=== PATIENT | female | born 1955 | race Caucasian/White ===

== ENCOUNTER 2016-11-16 17:12 | Observation (INO) | payer OTHER ==
[~2016-11-16] VITALS: Ht 152.4 cm; Wt 139.0 kg
[~2016-11-16 17:12] MED LIST: ARTHROTEC 751 TABLET PO; ASPIRIN81 M1 PO; DIOVAN160 MG PO; ERGOCALCIF50000 UNIT PO; FLEXERIL10 MG PO; PERCOCET 5/31 TABLET PO
[2016-11-16 19:08] LABS: EOSINOPHIL COUNT 0.2 K/uL (0-0.3); HEMATOCRIT 40.6 % (36.0-46.0); IMMATURE GRANULOCYTE (%) 0.5 % (0.0-0.7); INSTRUMENT ABS NEUTROPHIL CT 3.4 K/uL; LYMPHOCYTE COUNT 1.9 K/uL (1.0-2.8); MCH 28.3 PG (29.0-34.0); MCV 85.8 FL (83-99); MEAN PLAT.VOLUME 10.6 uM^3 (9.5-12.4); MONOCYTE (%) 7.4 % (3-12); MONOCYTE COUNT 0.5 K/uL (0-0.8); NEUTROPHIL (%) 56.8 % (45-76); NEUTROPHIL COUNT 3.4 K/uL (1.8-6.4); PLATELET COUNT 178 K/uL (156-360); RBC DIS.WIDTH-CV 13.2 % (11.8-14.6); RED BLOOD COUNT 4.73 M/uL (3.80-5.20); WHITE BLOOD COUNT 6.1 K/uL (4.1-10.2)
[2016-11-16 19:19] LABS: CHLORIDE 102 mEq/L (99-109); POTASSIUM 3.9 mEq/L (3.7-5.4); SODIUM 139 mEq/L (136-147)
[2016-11-16 19:21] LABS: GLUCOSE 166 mg/dL (70-99)
[2016-11-16 19:23] LABS: ANION GAP 8 MEQ/L (2-14); TOTAL BILIRUBIN 0.4 mg/dL (0.0-1.0)
[2016-11-16 19:25] LABS: ALKALINE PHOSPHATASE 86 IU/L (3-129); GFR ESTIMATE (CALCULATED) > 59 mL/min/
[2016-11-16 19:26] LABS: UREA NITROGEN (BUN) 16 mg/dL (9-23)
[2016-11-16 19:30] LABS: TROP-I INTERPRETATION NEGATIVE; TROPONIN-I < 0.01 ng/mL (0.0-0.30)
[2016-11-16 20:38] LABS: ADD MIUA? YES; BILIRUBIN NEGATIVE; BLOOD NEGATIVE; COLOR YELLOW ((YELLOW)); GLUCOSE (STRIP) NEGATIVE; KETONES NEGATIVE; LEUKOCYTES NEGATIVE; NITRITE NEGATIVE; PROTEIN (STRIP) NEGATIVE; SPECIFIC GRAVITY 1.015 (1.000-1.030); UROBILINOGEN 0.2 MG/DL (0.2-1.0)
[2016-11-16 20:43] LABS: BACTERIA RARE /HPF; EPITHELIAL CELLS RARE /HPF; MUCUS NONE SEEN /LPF; RED BLOOD CELLS NONE SEEN /HPF (0-5); UCUL ADDED? NO; WHITE BLOOD CELLS 0-5 /HPF (0-5)
[2016-11-16 21:35] LABS: D-DIMER ELISA 0.61 mg/L FEU (< 0.57)
[2016-11-16] MEDS ORDERED: FLEXERIL5 MG PO (23:28)
[2016-11-16] MEDS ORDERED: VOLTAREN75 MG PO (23:29)
[2016-11-16] MEDS ORDERED: LITE COAT ASPI325 M1 PO (23:30)
[2016-11-16] MEDS ORDERED: HYDROCHLOROTHIA25 MG PO (23:31)
[2016-11-16] MEDS ORDERED: PROPRANOLOL HCL10 MG PO (23:31)
[2016-11-16] MEDS ORDERED: MISOPROSTOL200 MCG PO (23:31)
[2016-11-16] MEDS ORDERED: HUMALOG MI100 UNIT/1 SC (23:31)
[2016-11-16] MEDS ORDERED: NITROSTAT0.4 MG SL (23:32)
[2016-11-17 01:47] VITALS: BP 158/84
[2016-11-17 01:50] LABS: POINT-OF-CARE METER ID UU14162513
[2016-11-17 04:51] VITALS: BP 152/76
[2016-11-17 08:21] LABS: POINT-OF-CARE METER ID UU14162513
[2016-11-17] MEDS ORDERED: LASIX20 MG PO (11:38)
[2016-11-17 11:42] VITALS: BP 141/67
[2016-11-17 12:27] LABS: POINT-OF-CARE METER ID UU14162513
== END 2016-11-17 13:05 | disposition home or self-care (01) ==
LOC: EME 17:12 → EDOF 11-17 00:12 → 5WEST 11-17 00:12
PROVIDERS: Emergency Medicine; Hospitalist
DX: E87.70 Fluid overload, unspecified (principal); I11.0 Hypertensive heart disease with heart failure; E11.9 Type 2 diabetes mellitus without complications; E66.01 Morbid (severe) obesity due to excess calories; E78.00 Pure hypercholesterolemia, unspecified; I50.9 Heart failure, unspecified; I47.1 Supraventricular tachycardia; M79.89 Other specified soft tissue disorders; R60.0 Localized edema; Z68.43 Body mass index [BMI] 50.0-59.9, adult; R07.89 Other chest pain; Z82.49 Family history of ischemic heart disease and other diseases of the circulatory system
CPT/HCPCS: 71020; 78582; 80053; 81003; 82948; 83880; 84484; 85025; 85379; 93005; 93970; 99281; 99285; A9540; A9567; G0378; J1815; J1940

== ENCOUNTER 2016-11-20 18:55 | Observation (INO) | payer OTHER ==
[~2016-11-20] VITALS: Ht 154.9 cm; Wt 135.3 kg
[~2016-11-20 18:55] MED LIST changes: +FLEXERIL5 MG PO; +HUMALOG MI100 UNIT/1 SC; +HYDROCHLOROTHIA25 MG PO; +LASIX20 MG PO; +LITE COAT ASPI325 M1 PO; +MISOPROSTOL200 MCG PO; +NITROSTAT0.4 MG SL; +PROPRANOLOL HCL10 MG PO; +VOLTAREN75 MG PO
[2016-11-20 19:47] LABS: HEMATOCRIT 39.4 % (36.0-46.0); MCH 28.6 PG (29.0-34.0); MCV 86.6 FL (83-99); MEAN PLAT.VOLUME 11.1 uM^3 (9.5-12.4); PLATELET COUNT 197 K/uL (156-360); RBC DIS.WIDTH-CV 13.1 % (11.8-14.6); RED BLOOD COUNT 4.55 M/uL (3.80-5.20)
[2016-11-20 19:58] LABS: CHLORIDE 100 mEq/L (99-109); SODIUM 136 mEq/L (136-147)
[2016-11-20 19:59] LABS: GLUCOSE 245 mg/dL (70-99)
[2016-11-20 20:01] LABS: ANION GAP 11 MEQ/L (2-14)
[2016-11-20 20:03] LABS: GFR ESTIMATE (CALCULATED) > 59 mL/min/
[2016-11-20 20:04] LABS: UREA NITROGEN (BUN) 13 mg/dL (9-23)
[2016-11-20 20:05] LABS: POTASSIUM 4.7 mEq/L (3.7-5.4)
[2016-11-20 20:10] LABS: TROP-I INTERPRETATION NEGATIVE; TROPONIN-I < 0.01 ng/mL (0.0-0.30)
[2016-11-20] MEDS ORDERED: PROPRANOLOL HCL20 MG PO ×2 (22:08→22:12)
[2016-11-20] MEDS ORDERED: FUROSEMIDE20 MG PO (22:13)
[2016-11-20] MEDS ORDERED: HUMALOG100 UNIT/1 SC (22:15)
[2016-11-20] MEDS ORDERED: VENTOLIN HFA18 GM IH (22:16)
[2016-11-20] MEDS ORDERED: PREDNISONE10 MG PO (22:16)
[2016-11-20] MEDS ORDERED: LEVAQUIN750 MG PO (22:18)
[2016-11-20] MEDS ORDERED: PRILOSEC OTC20 MG PO (22:22)
[2016-11-20] MEDS ORDERED: PULMICORT FLE180 MCG IH (22:23)
[2016-11-21 00:57] VITALS: BP 132/65
[2016-11-21 00:58] LABS: POINT-OF-CARE METER ID UU14174225
[2016-11-21 02:49] LABS: TROP-I INTERPRETATION NEGATIVE; TROPONIN-I < 0.01 ng/mL (0.0-0.30)
[2016-11-21 03:58] VITALS: BP 154/73
[2016-11-21 08:04] VITALS: BP 155/72
[2016-11-21 10:32] LABS: ALKALINE PHOSPHATASE 74 IU/L (3-129); ANION GAP 10 MEQ/L (2-14); CHLORIDE 97 MEQ/L (99-109); GFR ESTIMATE (CALCULATED) > 59 mL/min/; GLUCOSE 344 mg/dL (70-99); POTASSIUM 4.3 MEQ/L (3.7-5.4); SAMPLE HEMOLYSIS CHECK 0; SAMPLE ICTERIC CHECK 0; SAMPLE LIPEMIA CHECK 0; SODIUM 135 MEQ/L (136-147); TOTAL BILIRUBIN 0.5 MG/DL (0.0-1.0); UREA NITROGEN (BUN) 15 mg/dL (9-23)
[2016-11-21 10:40] LABS: TROP-I INTERPRETATION NEGATIVE; TROPONIN-I < 0.01 ng/mL (0.0-0.30)
[2016-11-21 10:41] LABS: HEMATOCRIT 38.2 % (36.0-46.0); MCHC 32.7 G/DL (30.0-36.0); MCV 85.7 FL (83-99); MEAN PLAT.VOLUME 11.7 uM^3 (9.5-12.4); PLATELET COUNT 179 K/uL (156-360); RBC DIS.WIDTH-CV 13.2 % (11.8-14.6); RBC DIS.WIDTH-SD 40.8 % (39-53); RED BLOOD COUNT 4.46 M/uL (3.80-5.20); WHITE BLOOD COUNT 5.7 K/uL (4.1-10.2)
[2016-11-21 10:49] LABS: BASE EXCESS 4.1 mEq/L (-3 to +3); BICARBONATE 28.5 mEq/L (22-26); CARBOXY HGB 2.1 % (0-5); COMMENTS - BLOOD GASES A+C+; FI02 0.21 %; METHEMOGLOBIN 1.3 % (0-1.5); PCO2 41 mm Hg (35-45); PO2 73 mm Hg (80-100); SITE RR; pH 7.45 (7.35-7.45)
[2016-11-21 10:50] LABS: TOTAL RESP RATE 18 resp/min
[2016-11-21 12:01] VITALS: BP 156/70
[2016-11-21 15:47] VITALS: BP 172/71
[2016-11-21 17:19] LABS: POINT-OF-CARE METER ID UU14174225
[2016-11-21 19:42] VITALS: BP 143/64
[2016-11-21 21:41] LABS: POINT-OF-CARE METER ID UU14174225
[2016-11-22 00:07] VITALS: BP 121/74
[2016-11-22 03:20] VITALS: BP 130/60
[2016-11-22 07:31] LABS: POINT-OF-CARE METER ID UU14174225
[2016-11-22 07:50] VITALS: BP 146/77
[2016-11-22] MEDS ORDERED: LEVOFLOXACIN750 MG PO (11:00)
[2016-11-22] MEDS ORDERED: ALBUTEROL2.5 MG/0.5 AEROSOL (11:01)
[2016-11-22] MEDS ORDERED: NEBULIZER MC (11:02)
[2016-11-22] MEDS ORDERED: MEDROL DOSEPAK4 MG PO (11:04)
[2016-11-22] MEDS ORDERED: LASIX40 MG PO (11:11)
[2016-11-22 11:46] LABS: POINT-OF-CARE METER ID UU14174225
[2016-11-22 11:54] VITALS: BP 137/71
[2016-11-22 14:54] VITALS: BP 135/78
== END 2016-11-22 15:23 | disposition home or self-care (01) ==
LOC: EME 18:55 → EDOF 23:05 → 5SOUTH 11-21 00:30
PROVIDERS: Internal Medicine
DX: J45.901 Unspecified asthma with (acute) exacerbation (principal); J20.9 Acute bronchitis, unspecified; E66.01 Morbid (severe) obesity due to excess calories; Z68.43 Body mass index [BMI] 50.0-59.9, adult; G47.33 Obstructive sleep apnea (adult) (pediatric); F41.9 Anxiety disorder, unspecified; I10 Essential (primary) hypertension; E11.65 Type 2 diabetes mellitus with hyperglycemia; I35.0 Nonrheumatic aortic (valve) stenosis; K21.9 Gastro-esophageal reflux disease without esophagitis; Z91.19 Patient's noncompliance with other medical treatment and regimen; R60.0 Localized edema
CPT/HCPCS: 36600; 71010; 80048; 80053; 82803; 82948; 84484; 85027; 87070; 87205; 93005; 94640; 94640 76; 99202; 99281; 99285; G0378; J1644; J1815; J1940; J2930; J7512

== ENCOUNTER 2016-11-24 12:24 | Emergency (ER) | payer OTHER ==
[~2016-11-24] VITALS: Ht 152.4 cm; Wt 135.9 kg
[~2016-11-24 12:24] MED LIST changes: +ALBUTEROL2.5 MG/0.5 AEROSOL; +FUROSEMIDE20 MG PO; +HUMALOG100 UNIT/1 SC; +LASIX40 MG PO; +LEVAQUIN750 MG PO; +LEVOFLOXACIN750 MG PO; +MEDROL DOSEPAK4 MG PO; +NEBULIZER MC; +PREDNISONE10 MG PO; +PRILOSEC OTC20 MG PO; +PROPRANOLOL HCL20 MG PO; +PULMICORT FLE180 MCG IH; +VENTOLIN HFA18 GM IH
[2016-11-24 14:37] LABS: HEMATOCRIT 42.7 % (36.0-46.0); MCH 28.4 PG (29.0-34.0); MCHC 33.5 G/DL (30.0-36.0); MCV 84.9 FL (83-99); PLATELET COUNT 202 K/uL (156-360); RBC DIS.WIDTH-CV 13.2 % (11.8-14.6); RBC DIS.WIDTH-SD 40.5 % (39-53); RED BLOOD COUNT 5.03 M/uL (3.80-5.20); WHITE BLOOD COUNT 7.4 K/uL (4.1-10.2)
[2016-11-24 14:46] LABS: CHLORIDE 99 mEq/L (99-109); SODIUM 138 mEq/L (136-147)
[2016-11-24 14:48] LABS: GLUCOSE 278 mg/dL (70-99)
[2016-11-24 14:49] LABS: ANION GAP 11 MEQ/L (2-14)
[2016-11-24 14:52] LABS: GFR ESTIMATE (CALCULATED) > 59 mL/min/
[2016-11-24 14:53] LABS: UREA NITROGEN (BUN) 17 mg/dL (9-23)
[2016-11-24 15:00] LABS: TROP-I INTERPRETATION NEGATIVE; TROPONIN-I < 0.01 ng/mL (0.0-0.30)
[2016-11-24] MEDS ORDERED: PREDNISONE50 MG PO (17:17)
[2016-11-24 18:58] VITALS: BP 161/77
== END 2016-11-24 18:59 | disposition home or self-care (01) ==
LOC: EME 12:24
DX: J44.1 Chronic obstructive pulmonary disease with (acute) exacerbation (principal); J45.909 Unspecified asthma, uncomplicated; I10 Essential (primary) hypertension; E78.5 Hyperlipidemia, unspecified; E11.9 Type 2 diabetes mellitus without complications; Z79.4 Long term (current) use of insulin; Z79.82 Long term (current) use of aspirin
CPT/HCPCS: 71020; 80048; 84484; 85027; 93005; 94640; 99281; 99284; J7512

== ENCOUNTER 2016-12-11 19:20 | Emergency (ER) | payer OTHER ==
[~2016-12-11] VITALS: Ht 152.4 cm; Wt 141.5 kg
[~2016-12-11 19:20] MED LIST changes: +PREDNISONE50 MG PO
[2016-12-11 19:58] LABS: MCH 28.5 PG (29.0-34.0); MCHC 33.1 G/DL (30.0-36.0); MCV 86.3 FL (83-99); RBC DIS.WIDTH-CV 13.6 % (11.8-14.6); RBC DIS.WIDTH-SD 42.4 % (39-53); RED BLOOD COUNT 4.52 M/uL (3.80-5.20); WHITE BLOOD COUNT 5.9 K/uL (4.1-10.2)
[2016-12-11 20:04] LABS: CHLORIDE 104 mEq/L (99-109); POTASSIUM 4.1 mEq/L (3.7-5.4); SODIUM 140 mEq/L (136-147)
[2016-12-11 20:06] LABS: GLUCOSE 175 mg/dL (70-99)
[2016-12-11 20:07] LABS: ANION GAP 9 MEQ/L (2-14)
[2016-12-11 20:10] LABS: GFR ESTIMATE (CALCULATED) > 59 mL/min/
[2016-12-11 20:11] LABS: UREA NITROGEN (BUN) 12 mg/dL (9-23)
[2016-12-11 21:10] LABS: PLAT.SUFFICIENCY DECREASED; PLATELET CLUMPS PRESENT - PLATELET COUNTS APPEARS DECREASED
[2016-12-11 21:33] LABS: PLATELET COUNT UNABLE TO REPORT K/uL (156-360)
[2016-12-11 22:48] LABS: EOSINOPHIL (%) 5.2 % (0-5); EOSINOPHIL COUNT 0.3 K/uL (0-0.3); HEMATOCRIT 38.3 % (36.0-46.0); IMMATURE GRANULOCYTE (%) 0.2 % (0.0-0.7); LYMPHOCYTE COUNT 1.9 K/uL (1.0-2.8); MCH 28.7 PG (29.0-34.0); MCHC 33.2 G/DL (30.0-36.0); MCV 86.7 FL (83-99); MEAN PLAT.VOLUME 10.8 uM^3 (9.5-12.4); MONOCYTE (%) 6.3 % (3-12); MONOCYTE COUNT 0.4 K/uL (0-0.8); NEUTROPHIL (%) 53.4 % (45-76); RBC DIS.WIDTH-CV 13.5 % (11.8-14.6); RBC DIS.WIDTH-SD 42.4 % (39-53); RED BLOOD COUNT 4.42 M/uL (3.80-5.20); WHITE BLOOD COUNT 5.6 K/uL (4.1-10.2)
[2016-12-11 22:50] LABS: PLATELET COUNT 128 K/uL (156-360)
[2016-12-11] MEDS ORDERED: CLINDAMYCIN HC300 MG PO (23:00)
[2016-12-11] MEDS ORDERED: TRAMADOL HCL50 MG PO (23:00)
[2016-12-11 23:25] VITALS: BP 196/85
== END 2016-12-11 23:27 | disposition home or self-care (01) ==
LOC: EME 19:20
PROVIDERS: Physician Assistant
DX: L03.116 Cellulitis of left lower limb (principal); R60.0 Localized edema; I10 Essential (primary) hypertension; E11.9 Type 2 diabetes mellitus without complications; Z79.4 Long term (current) use of insulin; I47.1 Supraventricular tachycardia; J45.909 Unspecified asthma, uncomplicated; E78.5 Hyperlipidemia, unspecified; I50.9 Heart failure, unspecified; E66.3 Overweight; Z68.44 Body mass index [BMI] 60.0-69.9, adult; Z87.442 Personal history of urinary calculi; Z90.49 Acquired absence of other specified parts of digestive tract; Z88.0 Allergy status to penicillin; Z88.5 Allergy status to narcotic agent
CPT/HCPCS: 71020; 80048; 83880; 85025; 85027; 93005; 99281; 99284

== ENCOUNTER 2017-01-12 20:08 | Emergency (ER) | payer OTHER ==
[~2017-01-12] VITALS: Ht 152.4 cm; Wt 142.7 kg
[~2017-01-12 20:08] MED LIST changes: +CLINDAMYCIN HC300 MG PO; +TRAMADOL HCL50 MG PO
[2017-01-12 20:14] VITALS: BP 146/71
[2017-01-12] MEDS ORDERED: LIDODERM 5% P1 PATCH TD (22:13)
== END 2017-01-12 23:01 | disposition home or self-care (01) ==
LOC: EME 20:08
DX: M54.5 Low back pain (principal); G89.29 Other chronic pain; Z88.0 Allergy status to penicillin
CPT/HCPCS: 99281; 99284; J1100

== ENCOUNTER 2017-02-08 18:00 | Emergency (ER) | payer OTHER ==
[~2017-02-08] VITALS: Ht 152.4 cm; Wt 135.6 kg
[~2017-02-08 18:00] MED LIST changes: +LIDODERM 5% P1 PATCH TD
[2017-02-08 19:31] LABS: HEMATOCRIT 44.6 % (36.0-46.0); MCH 28.4 PG (29.0-34.0); MCV 86.3 FL (83-99); MEAN PLAT.VOLUME 10.7 uM^3 (9.5-12.4); PLATELET COUNT 176 K/uL (156-360); RBC DIS.WIDTH-CV 13.6 % (11.8-14.6); RBC DIS.WIDTH-SD 42.5 % (39-53); RED BLOOD COUNT 5.17 M/uL (3.80-5.20); WHITE BLOOD COUNT 6.9 K/uL (4.1-10.2)
[2017-02-08 19:41] LABS: CHLORIDE 99 mEq/L (99-109); POTASSIUM 3.9 mEq/L (3.7-5.4); SODIUM 139 mEq/L (136-147)
[2017-02-08 19:42] LABS: GLUCOSE 141 mg/dL (70-99)
[2017-02-08 19:44] LABS: ANION GAP 11 MEQ/L (2-14)
[2017-02-08 19:46] LABS: GFR ESTIMATE (CALCULATED) > 59 mL/min/
[2017-02-08 19:47] LABS: UREA NITROGEN (BUN) 12 mg/dL (9-23)
[2017-02-08 20:15] VITALS: BP 183/84
== END 2017-02-08 20:27 | disposition home or self-care (01) ==
LOC: EME 18:00
PROVIDERS: Physician Assistant Medical
DX: I11.0 Hypertensive heart disease with heart failure (principal); I50.9 Heart failure, unspecified; E11.9 Type 2 diabetes mellitus without complications; E78.5 Hyperlipidemia, unspecified; J45.909 Unspecified asthma, uncomplicated; Z87.442 Personal history of urinary calculi; Z88.1 Allergy status to other antibiotic agents; Z88.0 Allergy status to penicillin; Z88.6 Allergy status to analgesic agent; Z91.040 Latex allergy status; Z79.84 Long term (current) use of oral hypoglycemic drugs
CPT/HCPCS: 80048; 85027; 99281; 99284

== ENCOUNTER 2017-03-02 20:24 | Emergency (ER) | payer OTHER ==
[~2017-03-02] VITALS: Ht 157.5 cm; Wt 137.5 kg
[2017-03-02] MEDS ORDERED: LIDODERM 5% P1 PATCH TD (23:49)
[2017-03-02] MEDS ORDERED: PREDNISONE20 MG PO (23:49)
[2017-03-02] MEDS ORDERED: FLEXERIL10 MG PO (23:49)
[2017-03-03] VITALS: BP 129/47
== END 2017-03-03 | disposition home or self-care (01) ==
LOC: EME 20:24
DX: M54.41 Lumbago with sciatica, right side (principal); M54.42 Lumbago with sciatica, left side; I10 Essential (primary) hypertension; E11.9 Type 2 diabetes mellitus without complications; J45.909 Unspecified asthma, uncomplicated; Z79.4 Long term (current) use of insulin; Z86.79 Personal history of other diseases of the circulatory system; Z88.1 Allergy status to other antibiotic agents; Z88.6 Allergy status to analgesic agent; Z88.7 Allergy status to serum and vaccine; Z88.5 Allergy status to narcotic agent
CPT/HCPCS: 72100; 99281; 99285; J7512

== ENCOUNTER 2017-06-01 21:05 | Inpatient (IN) | payer OTHER ==
[~2017-06-01] VITALS: Ht 152.4 cm; Wt 134.2 kg
[~2017-06-01 21:05] MED LIST changes: +PREDNISONE20 MG PO
[2017-06-01 22:53] LABS: HEMATOCRIT 35.5 % (36.0-46.0); MCH 28.6 PG (29.0-34.0); MCHC 33.8 G/DL (30.0-36.0); MCV 84.5 FL (83-99); PLATELET COUNT 212 K/uL (156-360); RBC DIS.WIDTH-CV 12.8 % (11.8-14.6); RBC DIS.WIDTH-SD 39.2 % (39-53); WHITE BLOOD COUNT 7.3 K/uL (4.1-10.2)
[2017-06-01 23:02] LABS: CHLORIDE 96 mEq/L (99-109); SODIUM 131 mEq/L (136-147)
[2017-06-01 23:04] LABS: GLUCOSE 223 mg/dL (70-99)
[2017-06-01 23:05] LABS: ANION GAP 11 MEQ/L (2-14)
[2017-06-01 23:06] LABS: TOTAL BILIRUBIN 0.9 mg/dL (0.0-1.0)
[2017-06-01 23:07] LABS: ALKALINE PHOSPHATASE 70 IU/L (3-129)
[2017-06-01 23:08] LABS: GFR ESTIMATE (CALCULATED) > 59 mL/min/
[2017-06-01 23:09] LABS: UREA NITROGEN (BUN) 8 mg/dL (9-23)
[2017-06-02 00:10] LABS: ADD MIUA? YES; BILIRUBIN NEGATIVE; BLOOD MODERATE; COLOR YELLOW ((YELLOW)); GLUCOSE (STRIP) NEGATIVE; KETONES 20; LEUKOCYTES LARGE; NITRITE POSITIVE; PROTEIN (STRIP) 100; SPECIFIC GRAVITY 1.009 (1.000-1.030); UROBILINOGEN 0.2 MG/DL (0.2-1.0)
[2017-06-02] MEDS ORDERED: SENNOSIDES8.6 MG PO (00:12)
[2017-06-02] MEDS ORDERED: GABAPENTIN300 MG PO (00:14)
[2017-06-02] MEDS ORDERED: BACLOFEN10 MG PO (00:16)
[2017-06-02] MEDS ORDERED: LANSOPRAZOLE30 MG PO (00:17)
[2017-06-02] MEDS ORDERED: PROPRANOLOL HCL20 MG PO (00:18)
[2017-06-02] MEDS ORDERED: VENTOLIN HFA18 GM IH (00:24)
[2017-06-02] MEDS ORDERED: MONTELUKAST SOD10 MG PO (00:29)
[2017-06-02 00:32] LABS: BACTERIA 1+ /HPF; EPITHELIAL CELLS NONE SEEN /HPF; MUCUS TRACE /LPF; UCUL ADDED? YES; WHITE BLOOD CELLS TNTC /HPF (0-5)
[2017-06-02] MEDS ORDERED: AMLODIPINE BESYL5 MG PO (00:36)
[2017-06-02] MEDS ORDERED: PROMETHAZINE HC25 M1 PO (00:39)
[2017-06-02 05:08] VITALS: BP 126/59
[2017-06-02 08:11] VITALS: BP 116/61
[2017-06-02 08:13] LABS: POINT-OF-CARE METER ID UU14208753
[2017-06-02 11:58] VITALS: BP 116/54
[2017-06-02 12:15] LABS: POINT-OF-CARE METER ID UU14149397
[2017-06-02 15:29] VITALS: BP 116/78
[2017-06-02 16:59] LABS: POINT-OF-CARE METER ID UU14208753
[2017-06-02 19:57] VITALS: BP 125/58
[2017-06-02 21:42] LABS: POINT-OF-CARE METER ID UU14149397
[2017-06-03 00:15] VITALS: BP 131/72
[2017-06-03 04:02] VITALS: BP 111/56
[2017-06-03 06:08] LABS: EOSINOPHIL (%) 3.7 % (0-5); EOSINOPHIL COUNT 0.2 K/uL (0-0.3); HEMATOCRIT 32.8 % (36.0-46.0); IMMATURE GRANULOCYTE (%) 0.3 % (0.0-0.7); INSTRUMENT ABS NEUTROPHIL CT 3.1 K/uL; LYMPHOCYTE COUNT 2.1 K/uL (1.0-2.8); MCHC 32.3 G/DL (30.0-36.0); MCV 86.5 FL (83-99); MEAN PLAT.VOLUME 11.4 uM^3 (9.5-12.4); MONOCYTE (%) 14.9 % (3-12); NEUTROPHIL (%) 48.5 % (45-76); NEUTROPHIL COUNT 3.1 K/uL (1.8-6.4); PLATELET COUNT 226 K/uL (156-360); RBC DIS.WIDTH-CV 12.8 % (11.8-14.6); RBC DIS.WIDTH-SD 40.6 % (39-53); RED BLOOD COUNT 3.79 M/uL (3.80-5.20); WHITE BLOOD COUNT 6.5 K/uL (4.1-10.2)
[2017-06-03 06:30] LABS: ANION GAP 7 MEQ/L (2-14); CHLORIDE 99 MEQ/L (99-109); GFR ESTIMATE (CALCULATED) > 59 mL/min/; GLUCOSE 132 mg/dL (70-99); SAMPLE HEMOLYSIS CHECK 0; SAMPLE ICTERIC CHECK 0; SAMPLE LIPEMIA CHECK 0; SODIUM 135 MEQ/L (136-147); UREA NITROGEN (BUN) 7 mg/dL (9-23)
[2017-06-03 06:53] LABS: POINT-OF-CARE METER ID UU14117124
[2017-06-03 07:56] VITALS: BP 128/65
[2017-06-03 11:11] LABS: POINT-OF-CARE METER ID UU14117124
[2017-06-03 11:19] VITALS: BP 117/57
[2017-06-03] MEDS ORDERED: LEVAQUIN750 MG PO (11:23)
== END 2017-06-03 14:57 | DRG 690 ==
LOC: EME → EDBD 21:05 → EDOF 06-02 03:03 → 3EAST 06-02 03:03 → ENRESERV 06-02 03:06 → 3EAST 06-02 04:45
PROVIDERS: Emergency Medicine; Hospitalist
DX: N39.0 Urinary tract infection, site not specified (principal); E11.9 Type 2 diabetes mellitus without complications; E66.01 Morbid (severe) obesity due to excess calories; Z68.43 Body mass index [BMI] 50.0-59.9, adult; I11.0 Hypertensive heart disease with heart failure; I50.9 Heart failure, unspecified; G89.29 Other chronic pain; M43.16 Spondylolisthesis, lumbar region; K59.00 Constipation, unspecified; M48.061 Spinal stenosis, lumbar region without neurogenic claudication; J44.9 Chronic obstructive pulmonary disease, unspecified; G47.33 Obstructive sleep apnea (adult) (pediatric); Z66 Do not resuscitate; E78.5 Hyperlipidemia, unspecified; D64.9 Anemia, unspecified; G43.909 Migraine, unspecified, not intractable, without status migrainosus; R10.11 Right upper quadrant pain; R11.2 Nausea with vomiting, unspecified; Z98.1 Arthrodesis status; Z79.4 Long term (current) use of insulin
CPT/HCPCS: 71020; 72158; 80048; 80053; 81003; 82948; 85025; 85027; 87040; 87077; 87086; 87186; 87502; 99202; 99281; 99285; J0696; J1650; J1815; J1956; J2405; J3370; J7030; J7040

== ENCOUNTER 2018-02-07 17:57 | Emergency (ER) | payer OTHER ==
[~2018-02-07] VITALS: Ht 152.4 cm; Wt 135.4 kg
[~2018-02-07 17:57] MED LIST changes: +AMLODIPINE BESYL5 MG PO; +BACLOFEN10 MG PO; +GABAPENTIN300 MG PO; +LANSOPRAZOLE30 MG PO; +MONTELUKAST SOD10 MG PO; +PROMETHAZINE HC25 M1 PO; +SENNOSIDES8.6 MG PO
[2018-02-07 20:47] LABS: APPEARANCE CLEAR ((CLEAR)); BILIRUBIN NEGATIVE; BLOOD NEGATIVE; COLOR STRAW ((YELLOW)); GLUCOSE (STRIP) NEGATIVE; KETONES NEGATIVE; LEUKOCYTES NEGATIVE; NITRITE NEGATIVE; PROTEIN (STRIP) NEGATIVE; SPECIFIC GRAVITY 1.005 (1.000-1.030); UCUL ADDED? NO; UROBILINOGEN 0.2 MG/DL (0.2-1.0)
[2018-02-07 21:48] VITALS: BP 132/92
== END 2018-02-07 21:49 | disposition home or self-care (01) ==
LOC: EME 17:57
PROVIDERS: Physician Assistant
DX: S80.01XA Contusion of right knee, initial encounter (principal); S93.401A Sprain of unspecified ligament of right ankle, initial encounter; S39.012A Strain of muscle, fascia and tendon of lower back, initial encounter; W18.30XA Fall on same level, unspecified, initial encounter; Z88.2 Allergy status to sulfonamides; Z88.0 Allergy status to penicillin; Z88.5 Allergy status to narcotic agent; Z88.1 Allergy status to other antibiotic agents; Z88.7 Allergy status to serum and vaccine; Z88.8 Allergy status to other drugs, medicaments and biological substances; Z91.041 Radiographic dye allergy status
CPT/HCPCS: 73564; 73610; 81003; 99281; 99284

== ENCOUNTER 2018-02-09 19:02 | Emergency (ER) | payer OTHER ==
[~2018-02-09] VITALS: Ht 152.4 cm; Wt 135.4 kg
[2018-02-09 22:25] VITALS: BP 181/88
== END 2018-02-09 22:26 | disposition home or self-care (01) ==
LOC: EME 19:02 → EXP 19:02
DX: M25.561 Pain in right knee (principal); Z91.81 History of falling; K21.9 Gastro-esophageal reflux disease without esophagitis; E11.9 Type 2 diabetes mellitus without complications; I11.0 Hypertensive heart disease with heart failure; I50.9 Heart failure, unspecified; E78.5 Hyperlipidemia, unspecified; J45.909 Unspecified asthma, uncomplicated; Z87.442 Personal history of urinary calculi; Z90.49 Acquired absence of other specified parts of digestive tract; Z79.4 Long term (current) use of insulin; Z88.0 Allergy status to penicillin; Z88.1 Allergy status to other antibiotic agents; Z88.2 Allergy status to sulfonamides; Z88.5 Allergy status to narcotic agent; Z88.7 Allergy status to serum and vaccine; Z88.8 Allergy status to other drugs, medicaments and biological substances; Z91.041 Radiographic dye allergy status
CPT/HCPCS: 73700; 99281; 99283